=== PATIENT | female | born 1965 | race Caucasian/White ===

== ENCOUNTER 2017-03-13 09:09 | Emergency (ER) | payer OTHER ==
[~2017-03-13] VITALS: Ht 160 cm; Wt 71.2 kg
[~2017-03-13 09:09] MED LIST: AZITHROMYCIN250 MG PO; BLM PO; COMBIVENT RESPI1 SPR INH; DOXYCYCLINE MO100 MG PO; FLEXERIL 5MG TAB5 MG PO; FLONASE120 SPRAY/ NASB; MEDROL DOSEPAK1 PAC PO; MOBIC15 MG PO; MOTRIN 600 MG600 MG PO; MUCINEX D 12001 TER PO; NASONEX0.05 MG/Ac NAS; PRILOSEC OTC20 MG PO; ROBITUSSIN W/CO10 ML PO; TRAMADOL50 MG PO; ZITHROMAX Z-PA250 M1 PO
[2017-03-13 09:15] VITALS: BP 141/91
== END 2017-03-13 10:00 | disposition admitted as inpatient to this hospital (09) ==
LOC: ERH 09:09
DX: R11.0 Nausea (principal); E86.0 Dehydration